=== PATIENT | male | born 1960 | race Caucasian/White ===

== ENCOUNTER → 2021-05-11 11:11 | Outpatient (BNVA) | payer BC, SELFPAY | PROVIDERS: PCP Internal Medicine; Visit Provider Internal Medicine ==

== ENCOUNTER → 2021-09-12 11:10 | Outpatient (BNVA) | payer MEDICARE, SELFPAY | PROVIDERS: PCP Internal Medicine; Visit Provider Internal Medicine | DX: J44.9 Chronic obstructive pulmonary disease, unspecified (principal); F17.210 Nicotine dependence, cigarettes, uncomplicated | CPT/HCPCS: 99212 ==

== ENCOUNTER 2021-10-17 16:21 | Outpatient (REF) | payer MEDICARE, SELFPAY ==
--- NOTE | ~2021-10-17 | XR_ITS ---
EXAMINATION: XR HIP, LEFT CLINICAL INFORMATION: Contusion. Pain. COMPARISON: None TECHNIQUE: Two views of the left hip. FINDINGS: No fracture. No dislocation. 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 There is joint narrowing and bone spurs of femoral head and acetabula of both hips, left worse than right. Sacroiliac joints and symphysis pubis are normal. Mild degenerative spondylosis of lower lumbar spine. There is a partial transitional vertebrae. Left transverse process of the lowest lumbar vertebrae articulates with the sacrum. XR/XR hip LT w [id number] IMPRESSION: No acute abnormality. Degenerative change of the hip joints bilateral.
== END 2021-10-17 16:22 | disposition home or self-care (01) ==
LOC: HO.HMGCX 16:21
PROVIDERS: Visit Provider Internal Medicine
DX: S70.02XA Contusion of left hip, initial encounter (principal)
CPT/HCPCS: 73502

== ENCOUNTER → 2022-01-12 10:47 | Outpatient (BNVA) | payer MEDICARE, SELFPAY | PROVIDERS: PCP Internal Medicine; Visit Provider Internal Medicine | DX: J44.9 Chronic obstructive pulmonary disease, unspecified (principal); F17.210 Nicotine dependence, cigarettes, uncomplicated | CPT/HCPCS: 99212 ==

== ENCOUNTER 2022-07-06 11:05 | Outpatient (REF) | payer MEDICARE, SELFPAY ==
--- NOTE | ~2022-07-06 | XR_ITS ---
EXAMINATION: XR CHEST CLINICAL INFORMATION: Smoking history COMPARISON: None TECHNIQUE: 2 views of the chest were obtained. FINDINGS: The cardiac silhouette does not appear enlarged. 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 There is increased density over the posterior mediastinum behind the heart probably representing a small esophageal hernia. Hilar and mediastinal contours are otherwise unremarkable. The lungs are clear. No pleural effusion or pneumothorax. Degenerative changes of the thoracic spine. Median sternotomy wires. XR/XR chest 2V IMPRESSION: No evidence for acute disease in the chest. Probable small esophageal hernia.
== END 2022-07-06 11:06 | disposition home or self-care (01) ==
LOC: HO.XRAY 11:05
PROVIDERS: PCP Internal Medicine; Visit Provider Internal Medicine
DX: J44.9 Chronic obstructive pulmonary disease, unspecified (principal); F17.210 Nicotine dependence, cigarettes, uncomplicated; R63.4 Abnormal weight loss; Z79.899 Other long term (current) drug therapy
CPT/HCPCS: 71046; 94010; 99212